=== PATIENT | female | born 1985 | race African-American/Black ===

== ENCOUNTER 2017-04-29 20:36 | Emergency (ER) | payer OTHER ==
[2017-04-29] MEDS ORDERED: 0.9 % SODIUM CHLORIDE 1,000 ML IV ONE ×3 (20:45→21:51)
[2017-04-29 20:46] VITALS: BP 116/79
[2017-04-29] MEDS ORDERED: ONDANSETRON HCL/PF 4 MG/ 2ML VIAL IVP ONE (20:48)
--- NOTE | 2017-04-29 20:52 | ED Physician Documentation ---
General Adult - HISTORIAN Historian: patient - HPI Stated Complaint: Diabetic complications Chief Complaint: General Adult Onset: days ago (1) Timing: still present Severity: moderate Further Comments: yes (Pt is a 31 yo aa female with DMI who has been feeling ill , with n/v that began yesterday and has gotten worse today. Pt has hx DKA. Glucose finger stick on [id number] - ROS CONST: other (malaise) EYES/ENT: nasal drainage CVS/RESP: none GI/: vomiting, nausea MS/SKIN/LYMPH: none - PAST HX Past History: hypertension, other (DMI) Allergies/Adverse Reactions: Allergies Allergy/AdvReac Type Severity Reaction Status Date / Time No Known Allergies Allergy Verified 04/29/17 20:53 Home Medications: Ambulatory Orders Medication Instructions Recorded Insulin Aspart [Novolog Flexpen] 40 unit SQ QDAY 04/29/17 Insulin Glargine,Hum.rec.anlog 60 unit SQ HS 04/29/17 [Lantus Solostar] Amoxicillin [Trimox] 500 mg PO Q8H #30 capsule 04/30/17 - SOCIAL HX Smoking History: other (smoking hx unk) - FAMILY HX Family History: No - VITAL SIGNS Vital Signs: Vital Signs Temp Pulse Resp BP Pulse Ox 99.9 F H 133 H 18 116/79 96 04/29/17 20:36 04/29/17 20:36 04/29/17 20:36 04/29/17 20:36 04/29/17 20:36 - REVIEWED ASSESSMENTS Nursing Assessment Reviewed: Yes Vitals Reviewed: Yes Progress - Progress Progress: ABG: pH 7.53; pCO2 32; pO2 89; HCO3 26.7; SaO2 98 RA. 1 L IVF x 2 Zofran 4 mg IV KCl 20 mEq po x 2 Insulin regular 6 units IV Insulin regular 10 units SC Glucose = 245 Upper Respiratory Infection Rx Amoxicillin 500 mg. Take one every 8 hrs for 10 days. Follow up with primary provider. - EKG/XRAY/CT XRAY: chest (negative) ED Results Lab/Radiology - Orders Orders: ED Orders Category Date Time Status Place IV Lock 1T Care 04/29/17 20:45 Active CBC/PLATELET/DIFF Routine Lab 04/29/17 Ordered CMP Routine Lab 04/29/17 Ordered UA [URINALYSIS] Routine Lab 04/29/17 Ordered blood gas [ARTERIAL BLOOD GAS] Stat Lab 04/29/17 Uncollected 0.9 % Sodium Chloride [Normal Saline] 1,000 ml Med 04/29/17 20:46 Discontinued IV .STK-MED 0.9 % Sodium Chloride [Normal Saline] 1,000 ml Med 04/29/17 20:45 Active IV Q1H Ondansetron HCl/Pf [Zofran 4 mg/2 ml] Med 04/29/17 20:48 Discontinued 4 mg IVP NOW ONE General Adult Physical Exam - PHYSICAL EXAM GENERAL APPEARANCE: moderate distress EENT: pharynx normal, purulent nasal drainage NECK: normal inspection, supple RESPIRATORY: no resp distress, chest non-tender, breath sounds normal CVS: tachycardia ABDOMEN: soft, no organomegaly, normal bowel sounds BACK: normal inspection, no CVA tenderness SKIN: warm/dry, normal color EXTREMITIES: non-tender, normal range of motion, no evidence of injury NEURO: oriented X3, motor nml, sensation nml Discharge Clincal Impression: hyperglycemia, hyponatremia, hypokalemia, nasal congestion Prescriptions: Amoxicillin [Trimox] 500 mg PO Q8H #30 capsule Referrals: Primary Doctor,No [Primary Care Provider] - Condition: Stable Disposition: HOME, SELF-CARE Decision to Admit: NO Decision Time: 00:10
[2017-04-29 20:59] LABS: BASOPHILS % 0.6 (0.0-1.5); EOSINOPHILS % 0.5 % (0.0-6.8); MEAN CORPUSCULAR HEMOGLOBIN 26.8 pg (28.0-34.0); MEAN CORPUSCULAR VOLUME 77.5 fl (80.0-100.0); MONOCYTES % 3.6 % (0.0-11.0); NEUTROPHILS # 8.2 # k/uL (1.4-7.7)
[2017-04-29 21:08] LABS: eGFR (African) > 60; eGFR (Non-African) > 60
[2017-04-29] MEDS ORDERED: POTASSIUM CHLORIDE 20 MEQ TABLET.ER PO ONE ×2 (21:14→21:51)
[2017-04-29] MEDS ORDERED: INSULIN REGULAR, HUMAN 100 UNIT/ML 3ML VIAL SQ ONE (21:16)
[2017-04-29] MEDS ORDERED: INSULIN REGULAR, HUMAN 100 UNIT/ML 3ML VIAL IV ONE (22:14)
[2017-04-30] MEDS ORDERED: AMOXICILLIN 500 MG CAPSULE PO ONE (00:09)
--- NOTE | 2017-04-30 06:29 | Diagnostic Imaging Report ---
ALVA BERMAN [facility] [address] [facility] [address] [address] Report Submission Date: Apr 30, 2017 12:08:34 AM CDT Patient Study Name: LÓPEZ MOSER Date: Apr 29, 2017 11:54:48 PM CDT Modality Type: CR Gender: F Description: CHEST : 81 Institution: [facility] Physician: ALVA BERMAN Chest - one-view Clinical history: Shortness of breath. Findings: Examination of the chest in single portable AP view 04/29/2017 2354 hours with no prior films for comparison demonstrates the lungs to be clear. Cardiovascular and mediastinal silhouettes are within normal limits. Monitor leads superimpose the chest. Impression: 1. No active disease. Electronically signed on Apr 30, 2017 12:08:34 AM CDT by: Nik HEDRICK
[2017-04-30 07:39] LABS: APPEARANCE,URINE CLEAR (CLEAR); COLOR,URINE YELLOW (YELLOW); OCCULT BLOOD,URINE TRACE-LYSED (NEGATIVE); PH URINE 6.5 (5.0 - 8.0); URINE HCG NEGATIVE (NEGATIVE); UROBILINOGEN URINE 0.2 Eu (0.2-1.0)
[2017-04-30 07:40] LABS: AMPHETAMINE NEGATIVE ng/mL (<1000); BARBITURATES NEGATIVE ng/mL (<300); CANNABINOIDS NEGATIVE ng/mL (< 50); COCAINE NEGATIVE ng/mL (<300); METHAMPHETAMINE NEGATIVE ng/mL (<1000); METHYLENEDIOXYMETHAMPHETAMINE NEGATIVE ng/mL (<500); OPIATES NEGATIVE ng/mL (<300)
[2017-04-30 16:26] LABS: ABG BASE EXCESS 4.3 (-2 - +2); ABG PH 7.53 (7.35-7.45)
== END 2017-04-30 00:35 | disposition home or self-care (01) ==
LOC: ED 20:36
DX: E11.65 Type 2 diabetes mellitus with hyperglycemia (principal); E87.1 Hypo-osmolality and hyponatremia; E87.6 Hypokalemia; R09.81 Nasal congestion
CPT/HCPCS: 36600; 71010; 80053; 80377; 81002; 81025; 82803; 85025; 85379; A9270; J1815; J2405; J7030; 96361; 96374; 96375; 99283; G0481; S1016